=== PATIENT | male | born 1960 ===

== ENCOUNTER 2017-07-16 10:21 | Inpatient (IN) | payer MEDICARE, OTHER ==
[2017-07-16 10:29] VITALS: BMI 19.9
--- NOTE | 2017-07-16 11:40 | ED PDOC ---
Arrival/HPI - General Chief Complaint: Shortness Of Breath Time Seen by Provider: 07/16/17 11:21 Historian: Patient, Family - History of Present Illness Narrative History of Present Illness (Text): 07/16/17 11:35 A 56 year old male, whose past medical history includes hepatic ecephalpathy, hypokalemia, hyperammonemia, avulsion, cirrhosis of liver, diabetes mellitus, and seizure, presents to the emergency department for shortness of breath due to distended abdomen, which began about 3 weeks ago. The patient was advised by home nurse and primary care doctor to visit emergency department for abnormal abdomen size. The patient denies any fevers, nausea, abdominal pain, vomiting, diarrhea, dysuria, chest pain, or any other complaints at this time. Time/Duration: > week (x 3 weeks ) Symptom Onset: Gradual Symptom Course: Unchanged Activities at Onset: Light Context: Home Past Medical History - Provider Review Nursing Documentation Reviewed: Yes - Infectious Disease Hx of Infectious Diseases: None - Tetanus Immunization Tetanus Immunization: Unknown - Cardiac Hx Cardiac Disorders: Yes Hx Angina: No Hx Cardiac Arrhythmia: No Hx Circulatory Problems: No Hx Congestive Heart Failure: No Hx Heart Murmur: No Hx Heart Transplant: No Hx Hypertension: Yes (portal hypertension) Hx Internal Defibrillator: No Hx Mitral Valve Prolapse: No Hx Pacemaker: No Hx Peripheral Edema: No Hx Peripheral Vascular Disease: No - Pulmonary Hx Respiratory Disorders: No Hx Asthma: No Hx Bronchitis: No Hx Chronic Obstructive Pulmonary Disease (COPD): No Hx Emphysema: No Hx Pneumonia: No Hx Respiratory Aspiration: No Hx Respiratory Tract Infection: No Hx Sleep Apnea: No Hx Tuberculosis: No - Neurological Hx Neurological Disorder: No Hx Alzheimer's Disease: No HX Cerebrovascular Accident: No Hx Dementia: No Hx Dizziness: Yes Hx Meningitis: No Hx Migraine: No Hx Parkinson's Disease: No Hx Seizures: No Hx Transient Ischemic Attacks (TIA): No - HEENT Hx HEENT Disorder: Yes (wear glasses) Hx Blind: No Hx Cataracts: No Hx Deafness: No Hx Difficulty Chewing: No Hx Epistaxis: No Hx Glaucoma: No Hx Macular Degeneration: No - Renal Hx Renal Disorder: No Hx Dialysis: No Hx Kidney Stones: No Hx Neurogenic Bladder: No Hx Pyelonephritis: No Hx Renal Cancer: No Hx Renal Failure: No - Endocrine/Metabolic Hx Endocrine Disorders: Yes Hx Adrenal Cancer: No Hx Diabetes Insipidus: No Hx Diabetes Mellitus Type 2: Yes Hx Hyperthyroidism: No Hx Hypothyroidism: No Hx Systemic Lupus Erythematosus: No - Hematological/Oncological Hx Blood Disorders: No Hx AIDS: No Hx Anemia: No Hx Cancer: Yes (liver dx 01/2016) Hx Chemotherapy: Yes Hx Cirrhosis: Yes Hx Hemophilia: No Hx Hepatitis A: No Hx Hepatitis B: No Hx Hepatitis C: No Hx Metastasis: No Hx Shingles: No Hx Sickle Cell Disease: No Hx Unexplained Bleeding: No - Integumentary Hx Dermatological Disorder: No Hx Basal Cell Carcinoma: No Hx Melanoma: No Hx Psoriasis: Yes Hx Squamous Cell Carcinoma: No - Musculoskeletal/Rheumatological Hx Musculoskeletal Disorders: No Hx Arthritis: No Hx Back Pain: No Hx Degenerative Joint Disease: No Hx Falls: No Hx Fractures: No Hx Gout: No Hx Herniated Disk: No Hx Myasthenia Gravis: No Hx Osteoarthritis: No Hx Osteomyelitis: No Hx Osteoporosis: No Hx Rhabdomyolysis: No Hx Spinal Stenosis: No Hx Unsteady Gait: No - Gastrointestinal Hx Gastrointestinal Disorders: Yes (diarrhea from lactulose) Hx Colostomy: No Hx Crohn's Disease: No Hx Diverticulitis: No Hx Gall Bladder Disease: No Hx Gastroesophageal Reflux: No Hx Gastrointestinal Ulcer: No Hx Ileostomy: No Hx Liver Failure: No Hx Pancreatitis: No HX Swallowing Problems: No Other/Comment: Liver Cirrhosis - Genitourinary/Gynecological Hx Genitourinary Disorders: Yes Hx Hematuria: No Hx Incontinence: No Hx Prostate Problems: No Hx Sexually Transmitted Diseases: No Hx Urinary Tract Infection: No - Psychiatric Hx Psychophysiologic Disorder: No Hx Anxiety: No Hx Bipolar Disorder: No Hx Depression: No Hx Emotional Abuse: No Hx Hallucinations: No Hx Panic Disorder: No Hx Post Traumatic Stress Disorder: No Hx Psychosis: No Hx Physical Abuse: No Hx Schizophrenia: No Hx Sexual Abuse: No Hx Substance Use: No - Past Surgical History Past Surgical History: No Previous - Surgical History Hx Amputation: No Hx Appendectomy: No Hx Cardiac Catheterization: No Hx Cholecystectomy: No Hx Coronary Stent: No Hx Gastric Bypass Surgery: No Hx Hysterectomy: No Hx Joint Replacement: No Hx Kidney Transplant: No Hx Liver Transplant: No Hx Mastectomy: No Hx Musculoskeletal Surgery: No Hx Open Heart Surgery: No Hx Orthopedic Surgery: No Hx Splenectomy: No Hx Valve Replacement: No - Anesthesia Hx Anesthesia: No - Suicidal Assessment Feels Threatened In Home Enviroment: No Family/Social History - Physician Review Nursing Documentation Reviewed: Yes Family/Social History: No Known Family HX Smoking Status: Former Smoker Hx Alcohol Use: No Hx Substance Use: No Hx Substance Use Treatment: No Allergies/Home Meds Allergies/Adverse Reactions: Allergies No Known Allergies Allergy (Verified 08/10/16 10:38) Home Medications: Home Meds Medication Instructions Recorded Confirmed Insulin Glargine,Hum.rec.anlog 10 unit SC HS 10/12/14 07/16/17 [Lantus] rifAXIMin [Xifaxan] 1 tab PO BID 06/27/16 07/16/17 Insulin Lispro [Humalog (Insulin 0 units SC .EVERY MORNING 08/10/16 07/16/17 Lispro)] Omeprazole 20 mg PO DAILY 08/10/16 07/16/17 Potassium Chloride [K-Dur 20 mEq 20 meq PO DAILY 07/16/17 07/16/17 ER Tab] Spironolactone [Aldactone] 1 tab PO DAILY 07/16/17 07/16/17 Review of Systems - Physician Review All systems were reviewed & negative as marked: Yes - Review of Systems Constitutional: absent: Fevers Respiratory: SOB Cardiovascular: absent: Chest Pain Gastrointestinal: Other (abdominal distension ). absent: Abdominal Pain, Diarrhea, Nausea, Vomiting Genitourinary Male: absent: Dysuria Physical Exam - Physical Exam Narrative Physical Exam (Text): 07/16/17 11:37 Constitutional: No acute distress. Head: Normocephalic. Atraumatic. Eyes: PERRL. scleral icterus. ENT: Moist mucous membranes. Neck: Supple. Cardiovascular: Regular rate. Chest: No tenderness. Respiratory: Clear to auscultation bilaterally. GI: Soft. Nontender. Tense ascites of superficial abdominal veins. Back: No CVA tenderness. Musculoskeletal: No tenderness. Bilateral pitting edema. Skin: No rash. spider angioma. Neurologic: Alert, no focal deficit. Vital Signs Reviewed: Yes Vital Signs Temp Pulse Resp BP Pulse Ox 07/16/17 12:21 82 18 140/85 100 07/16/17 11:00 16 07/16/17 10:47 98.3 F 97 H 18 142/82 100 Temperature: Afebrile Blood Pressure: Normal Pulse: Tachycardic Respiratory Rate: Normal Appearance: Positive for: Well-Appearing, Non-Toxic, Comfortable Pain Distress: None Mental Status: Positive for: Alert and Oriented X 3 Finger Stick Blood Glucose: 241 Medical Decision Making ED Course and Treatment: 07/16/17 11:42 Impression: A 56 year old male with a distended abdomen. Differential Diagnosis included but are not limited to: Plan: -- EKG -- Chest X-ray -- Labs -- Urinalysis -- Reassess and disposition Prior Visits: Notes and results from previous visits were reviewed. The patient was last seen in the emergency department on 08/11/16 for hepatic encephalopathy. The patient was hospitalized. Progress Notes: 07/16/17 13:18 Chest X-ray Cutter Brake Lining : Jeromy Anne MD Report Date : 07/16/2017 13:15:07 HISTORY:dyspnea COMPARISON:08/10/2016 FINDINGS: LUNGS:No active pulmonary disease. Minimal linear atelectasis at both lung bases PLEURA:No significant pleural effusion identified, no pneumothorax apparent. CARDIOVASCULAR:Normal. OSSEOUS STRUCTURES:No significant abnormalities. VISUALIZED UPPER ABDOMEN:Normal. OTHER FINDINGS:None. IMPRESSION:No active disease. EKG NSR 98 bpm, no ST elevations or depressions. Potassium supplementation initiated. Dr. Tapia accepts patient to hospitalist service. - Lab Interpretations Lab Results: 07/16/17 11:30 07/16/17 11:30 Lab Results 07/16/17 13:00: Urine Color Yellow, Urine Appearance Clear, Urine pH 7.5, Ur Specific [place] 1.010, Urine Protein Negative, Urine Glucose (UA) Negative, Urine Ketones Negative, Urine Blood Negative, Urine Nitrate Negative, Urine Bilirubin Negative, Urine Urobilinogen 1.0 H, Ur Leukocyte Esterase Negative 07/16/17 11:30: Sodium 137, Potassium 2.6 L*, Chloride 105, Carbon Dioxide 21, Anion Gap 14, BUN 5 L, Creatinine 0.6, Est GFR ( Amer) > 60, Est GFR (Non -Af Amer) > 60, Random Glucose 186 H, Calcium 8.4, Total Bilirubin 5.3 H, AST 136 H, ALT 62 H, Alkaline Phosphatase 194 H, Total Protein 7.7, Albumin 2.9 L, Globulin 4.8, Albumin/Globulin Ratio 0.6 L 07/16/17 11:30: PT 16.1 H, INR 1.49 H, APTT 34.1 H 07/16/17 11:30: WBC 4.6 D, RBC 3.11 L, Hgb 10.4 L, Hct 31.1 L, MCV 100.0, MCH 33.4, MCHC 33.4, RDW 13.5, Plt Count 120, MPV 10.2, Gran % 69.8 H, Lymph % (Auto ) 9.7 L, [place] % (Auto) 17.7 H, Eos % (Auto) 1.7, Baso % (Auto) 1.1, Gran # 3.22 , Lymph # 0.5 L, [place] # 0.8 H, Eos # 0.1, Baso # 0.05 07/16/17 11:21: Blood Type O POSITIVE, Antibody Screen Negative, BBK History Checked No verified bt - RAD Interpretation Radiology Orders: 07/16/17 11:22 CHEST PORTABLE [RAD] Stat - Medication Orders Current Medication Orders: Potassium Chloride (Potassium Chloride 20 Meq/100 Ml) 20 meq in 100 mls @ 50 mls/hr IVPB STAT STA Stop: 07/16/17 14:16 Last Admin: 07/16/17 12:56 Dose: 50 mls/hr - Scribe Statement The provider has reviewed the documentation as recorded by the Arina Lynch Provider Scribe Attestation: All medical record entries made by the Arina were at my direction and personally dictated by me. I have reviewed the chart and agree that the record accurately reflects my personal performance of the history, physical exam, medical decision making, and the department course for this patient. I have also personally directed, reviewed, and agree with the discharge instructions and disposition. Disposition/Present on Arrival - Present on Arrival Any Indicators Present on Arrival: Yes History of DVT/PE: No History of Uncontrolled Diabetes: Yes Urinary Catheter: No History of Decub. Ulcer: No History Surgical Site Infection Following: None - Disposition Have Diagnosis and Disposition been Completed?: Yes Diagnosis: Hypokalemia, Ascites Disposition: HOSPITALIZED Disposition Time: 13:25 Patient Plan: Admission Condition: FAIR
[2017-07-16 11:45] LABS: BASO # 0.05 K/mm3 (0.0-2.0); BASO % 1.1 % (0.0-3.0); EOS # 0.1 (0.0-0.7); EOS % 1.7 % (1.5-5.0); GRAN # 3.22 (1.4-6.5); GRAN % 69.8 % (50.0-68.0); HEMATOCRIT 31.1 % (42.0-52.0); LYMPH # 0.5 (1.2-3.4); LYMPH % 9.7 % (22.0-35.0); MEAN CORPUSCULAR HEMOGLOBIN 33.4 pg (25.0-35.0); MEAN CORPUSCULAR HGB CONC 33.4 g/dl (31.0-37.0); MEAN PLATELET VOLUME 10.2 fl (7.0-11.0); MONO # 0.8 (0.1-0.6); MONO % 17.7 % (1.0-6.0); RED CELL DISTRIBUTION WIDTH 13.5 % (11.5-14.5); WHITE BLOOD COUNT 4.6 10^3/ul (4.5-11.0)
[2017-07-16 11:50] LABS: ALB/GLOB RATIO 0.6 (1.1-1.8); ALKALINE PHOSPHATASE 194 U/L (38-126); ALT/SGPT 62 U/L (7-56); AST/SGOT 136 U/L (17-59); BILIRUBIN,TOTAL 5.3 mg/dL (0.2-1.3); BLOOD UREA NITROGEN 5 mg/dL (7-21); CALCIUM 8.4 mg/dL (8.4-10.5); CARBON DIOXIDE 21 mmol/L (21-33); CHLORIDE 105 mmol/L (98-107); GFR AFRICAN-AMERICAN > 60; GLUCOSE,RANDOM 186 mg/dL (70-110); SODIUM 137 mmol/L (132-148); TOTAL PROTEIN 7.7 g/dL (5.8-8.3)
[2017-07-16 11:51] LABS: INR 1.49 (0.93-1.08); PARTIAL THROMBOPLASTIN TIME 34.1 Seconds (23.7-30.8)
[2017-07-16 11:55] LABS: POTASSIUM 2.6 mmol/L (3.6-5.0)
--- NOTE | 2017-07-16 13:16 | RAD ---
HISTORY: dyspnea COMPARISON: 08/10/2016 FINDINGS: LUNGS: No active pulmonary disease. Minimal linear atelectasis at both lung bases PLEURA: No significant pleural effusion identified, no pneumothorax apparent. CARDIOVASCULAR: Normal. OSSEOUS STRUCTURES: No significant abnormalities. VISUALIZED UPPER ABDOMEN: Normal. OTHER FINDINGS: None. IMPRESSION: No active disease.
[2017-07-16 13:17] LABS: PH,URINE 7.5 (4.7-8.0); URINE BILIRUBIN NEGATIVE (NEGATIVE); URINE BLOOD NEGATIVE (NEGATIVE); URINE GLUCOSE (UA) NEGATIVE (NEGATIVE); URINE KETONE NEGATIVE (NEGATIVE); URINE LEUKOCYTE ESTERASE NEGATIVE Leu/uL (NEGATIVE); URINE PROTEIN NEGATIVE mg/dL (<30 mg/dL)
[2017-07-16 13:22] LABS: URINE APPEARANCE CLEAR (CLEAR); URINE COLOR YELLOW (YELLOW)
--- NOTE | 2017-07-16 14:13 | CARD ---
APPROVED REPORT EKG Measurement Heart [id number] <Conclusion> Normal sinus rhythm Possible Left atrial enlargement Nonspecific ST and T wave abnormality Prolonged QT Abnormal ECG
[2017-07-16] MEDS ORDERED: Potassium Chloride 20 mEq/15 ml LIQ UD PO STA (14:24)
[2017-07-16] MEDS ORDERED: Pantoprazole 40mg/100ml IVPB 40 MG/100 ML BAG IVPB SCH (14:30)
--- NOTE | 2017-07-16 15:29 | CP.PCM.HP ---
<Raúl Davis - Last Filed: 07/16/17 15:40> History of Present Illness - History of Present Illness History of Present Illness: This is a 56 yr. old male with a past medical history of hepatic encephalpathy, hypokalemia hyperammonemia, avulsion, cirrhosis of liver, diabetes mellitus, seizure who is being admitted after coming to the emergency department complaining of shortness of breath due to swelling in his abdomen that has progressively gotten worse over the past 3 weeks. The patient denies any abdominal pain, nausea, vomiting, fevers, chills, blood in the stool, bleeding, headache, dizziness, or any other complaints. The patient was recently hospitalized and discharged from [facility] with the admitting diagnosis of hypoglycemia. The patient also had a seizure 2/2 to severe hypoglycemia during his hospital stay at [facility]. The patient also denies being diagnosed with Hep B/C in his past. While in the Emergency Department the patient was given 20mEq of KCL. He also had an EKG done which showed NSR, no acute ST-T changes. Also had an CXR which showed no active disease. PMD:Dr. Rivera GI: PMHx: Per HPI Medications: Aldactone, K-Dur, Enulose, Lispro, Glargine, Rifaxim, Lantis (10 Units), and Humalog Hosp HX: Per HPI Allergies: NKDA Fam Hx:Denies Present on Admission - Present on Admission Any Indicators Present on Admission: No Review of Systems - Constitutional Constitutional: As Per HPI - EENT Ears: As Per HPI Nose/Mouth/Throat: As Per HPI - Cardiovascular Cardiovascular: As Per HPI - Respiratory Respiratory: As Per HPI - Gastrointestinal Gastrointestinal: As Per HPI - Genitourinary Genitourinary: As Per HPI - Musculoskeletal Musculoskeletal: As Per HPI - Integumentary Integumentary: As Per HPI - Psychiatric Psychiatric: As Per HPI - Endocrine Endocrine: As Per HPI - Hematologic/Lymphatic Hematologic: As Per HPI Past Patient History - Infectious Disease Hx of Infectious Diseases: None - Tetanus Immunizations Tetanus Immunization: Unknown - Past Social History Smoking Status: Former Smoker - CARDIAC Hx Cardiac Disorders: Yes Hx Angina: No Hx Cardia Arrhythmia: No Hx Circulatory Problems: No Hx Congestive Heart Failure: No Hx Heart Murmur: No Hx Heart Transplant: No Hx Hypertension: Yes (portal hypertension) Hx Internal Defibrillator: No Hx Mitral Valve Prolapse: No Hx Pacemaker: No Hx Peripheral Edema: No Hx Peripheral Vascular Disease: No - PULMONARY Hx Respiratory Disorders: No Hx Asthma: No Hx Bronchitis: No Hx Chronic Obstructive Pulmonary Disease (COPD): No Hx Emphysema: No Hx Pneumonia: No Hx Respiratory Aspiration: No Hx Respiratory Tract Infection: No Hx Sleep Apnea: No Hx Tuberculosis: No - NEUROLOGICAL Hx Neurological Disorder: No Hx Alzheimer's Disease: No HX Cerebrovascular Accident: No Hx Dementia: No Hx Dizziness: Yes Hx Meningitis: No Hx Migraine: No Hx Parkinson's Disease: No Hx Seizures: No Hx Transient Ischemic Attacks (TIA): No - HEENT Hx HEENT Problems: Yes (wear glasses) Hx Blind: No Hx Cataracts: No Hx Deafness: No Hx Difficulty Chewing: No Hx Epistaxis: No Hx Glaucoma: No Hx Macular Degeneration: No - RENAL Hx Chronic Kidney Disease: No Hx Dialysis: No Hx Kidney Stones: No Hx Neurogenic Bladder: No Hx Pyelonephritis: No Hx Renal (Kidney) Cancer: No Hx Renal Failure: No - ENDOCRINE/METABOLIC Hx Endocrine Disorders: Yes Hx Adrenal Cancer: No Hx Diabetes Insipidus: No Hx Diabetes Mellitus Type 2: Yes Hx Hyperthyroidism: No Hx Hypothyroidism: No Hx Systemic Lupus Erythematosus: No - HEMATOLOGICAL/ONCOLOGICAL Hx Blood Disorders: No Hx AIDS: No Hx Anemia: No Hx Cancer: Yes (liver dx 01/2016) Hx Chemotherapy: Yes Hx Cirrhosis: Yes Hx Hemophilia: No Hx Hepatitis A: No Hx Hepatitis B: No Hx Hepatitis C: No Hx Metastesis: No Hx Shingles: No Hx Sickle Cell Disease: No Hx Unexplained Bleeding: No - INTEGUMENTARY Hx Dermatological Problems: No Hx Basil Cell: No Hx Melanoma: No Hx Psoriasis: Yes Hx Squamous Cell: No - MUSCULOSKELETAL/RHEUMATOLOGICAL Hx Musculoskeletal Disorders: No Hx Arthritis: No Hx Back Pain: No Hx Degenerative Joint Disease: No Hx Falls: No Hx Fractures: No Hx Gout: No Hx Herniated Disk: No Hx Myasthenia Gravis: No Hx Osteoarthritis: No Hx Osteomyelitis: No Hx Osteoporosis: No Hx Rhabdomyolysis: No Hx Spinal Stenosis: No Hx Unsteady Gait: No - GASTROINTESTINAL Hx Gastrointestinal Disorders: Yes (diarrhea from lactulose) Hx Colostomy: No Hx Crohn's Disease: No Hx Diverticulitis: No Hx Gall Bladder Disease: No Hx Gastroesophageal Reflux: No Hx Ileostomy: No Hx Liver Failure: No Hx Pancreatitis: No HX Swallowing Problems: No Other/Comment: Liver Cirrhosis - GENITOURINARY/GYNECOLOGICAL Hx Genitourinary Disorders: Yes Hx Hematuria: No Hx Incontinence: No Hx Prostate Problems: No Hx Sexually Transmitted Disorders: No Hx Urinary Tract Infection: No - PSYCHIATRIC Hx Psychophysiologic Disorder: No Hx Anxiety: No Hx Bipolar Disorder: No Hx Depression: No Hx Emotional Abuse: No Hx Hallucinations: No Hx Panic Symptoms: No Hx Post Traumatic Stress Disorder: No Hx Psychosis: No Hx Physical Abuse: No Hx Schizophrenia: No Hx Sexual Abuse: No Hx Substance Use: No - SURGICAL HISTORY Hx Amputation: No Hx Appendectomy: No Hx Cardiac Catheterization: No Hx Cholecystectomy: No Hx Coronary Stent: No Hx Gastric Bypass Surgery: No Hx Hysterectomy: No Hx Joint Replacement: No Hx Kidney Transplant: No Hx Liver Transplant: No Hx Mastectomy: No Hx Musculoskeletal Surgery: No Hx Open Heart Surgery: No Hx Orthopedic Surgery: No Hx Splenectomy: No Hx Valve Replacement: No - ANESTHESIA Hx Anesthesia: No Meds Allergies/Adverse Reactions: Allergies Allergy/AdvReac Type Severity Reaction Status Date / Time No Known Allergies Allergy Verified 08/10/16 10:38 Physical Exam - Constitutional Appears: Older Than Stated Age, Cachectic, Chronically Ill - Head Exam Head Exam: ATRAUMATIC, NORMAL INSPECTION, NORMOCEPHALIC - Eye Exam Eye Exam: EOMI, PERRL, Scleral icterus Pupil Exam: NORMAL ACCOMODATION, PERRL. absent: Irregular - ENT Exam ENT Exam: Mucous Membranes Moist Additional comments: Thrush appreciated - Neck Exam Neck exam: Positive for: Normal Inspection - Respiratory Exam Respiratory Exam: Clear to Auscultation Bilateral, NORMAL BREATHING PATTERN. absent: Chest Wall Tenderness, Wheezes - Cardiovascular Exam Cardiovascular Exam: REGULAR RHYTHM, RRR, +S1. absent: Rubs - GI/Abdominal Exam Additional comments: Ascites noted and Caput madusae. - Back Exam Back exam: NORMAL INSPECTION. absent: paraspinal tenderness - Neurological Exam Neurological exam: Alert, CN II-XII Intact, Oriented x3 - Skin Skin Exam: Pallor Results - Vital Signs Recent Vital Signs: Last Vital Signs Temp 98.3 F 07/16/17 10:47 Pulse 87 07/16/17 14:50 Resp 18 07/16/17 14:50 BP 139/79 07/16/17 14:50 Pulse Ox 100 07/16/17 14:50 - Labs Result Diagrams: 07/16/17 11:30 07/16/17 11:30 Assessment & Plan - Assessment and Plan (Free Text) Assessment: This is a 56 year old male with past medical history of hyperammonia, liver cirrhosis, hepatic encephalopathy, avulsion, seizures, and diabetes who was admitted with ascites and hypokalemia. Plan: 1.Ascites -Dr. Conway was consulted for therapeutic and diagnostic tap. -Started on Calorie restricted, Na restricted, fluid restriction diet. 1500ml Diet/Low Na diet/1800kcal -GI consulted. f/u with recs. -continue home medications. Will hold lactulose if patient has another bowel movement due to his hypokalemia. 2.Hypokalemia -2.6 at admission. Patient given 20mEq in the emergency department. -Patient given another 40 mEq is to receive another 40 mEq in 4 hours. f/u with serial cmp's. 3. Oral Thrust -Likely 2/2 to his diabetes. -Nystatin swish 4.Diabetes mellitus -held home medications -Start low insulin sliding scale. Follow up with Q6 blood glucose checks. Monitor closely. 4.GI ppx -Start protonix 5.DVT ppx -Lovenox. Will hold for pending paracentesis <Ricardo SINGH,[facility] - Last Filed: 07/16/17 16:56> Results - Vital Signs Recent Vital Signs: Last Vital Signs Temp 98.3 F 07/16/17 15:25 Pulse 82 07/16/17 15:25 Resp 18 07/16/17 15:25 BP 140/85 07/16/17 15:25 Pulse Ox 100 07/16/17 14:50 - Labs Result Diagrams: 07/16/17 11:30 07/16/17 11:30 Labs: Laboratory Results - last 24 hr 07/16/17 16:19 POC Glucose (mg/dL) 190 H Attending/Attestation - Attestation I have personally seen and examined this patient.: Yes I have fully participated in the care of the patient.: Yes I have reviewed all pertinent clinical information: Yes Notes (Text): 07/16/17 16:48 Patient was seen and examined with medical technologist clinical. Agreed with resident assessment and plan. 56 year old male with past medical history of chronic liver disease,Ascites, , DM currently not on any medication due to H/O hypoglycemia , hepatic encephalopathy, is admitted with admitted with ascites and hypokalemia.EKG is negative for hypokalemic changes, patient has been given repalcement in ER.We will give oral K and follow up electrolyte. Patient Ascites is likely chronic,was started on spironolactone.Patient does not has any abdominal tenderness, will get IR consult for Paracentesis. Recent MRI was noted, no evidence of liver malignancy on MRI. Patient is very cachectic. Prognosis is guarded. Management plan was discussed in detail with patient Education was provided. 07/16/17 16:55
[2017-07-16] MEDS ORDERED: Pneumococcal 23-Valent Vaccine IM ONE (16:09)
[2017-07-16] MEDS: Insulin Reg-LOW-Coverage SC SCH ×2 (16:44→21:40)
[2017-07-16] MEDS: Pantoprazole 40 mg EC Tab PO SCH (16:46)
[2017-07-16] MEDS: Nystatin 100,000 Units/ml Oral Susp 5 ml UD PO SCH ×2 (17:18→21:41)
[2017-07-16 18:16] LABS: ALB/GLOB RATIO 0.5 (1.1-1.8); ALKALINE PHOSPHATASE 161 U/L (38-126); ALT/SGPT 55 U/L (7-56); AST/SGOT 111 U/L (17-59); BILIRUBIN,TOTAL 5.1 mg/dL (0.2-1.3); BLOOD UREA NITROGEN 5 mg/dL (7-21); CALCIUM 7.7 mg/dL (8.4-10.5); CARBON DIOXIDE 21 mmol/L (21-33); CHLORIDE 106 mmol/L (98-107); GFR AFRICAN-AMERICAN > 60; GLUCOSE,RANDOM 199 mg/dL (70-110); SODIUM 134 mmol/L (132-148); TOTAL PROTEIN 6.8 g/dL (5.8-8.3)
[2017-07-16 18:18] LABS: POTASSIUM 2.5 mmol/L (3.6-5.0)
[2017-07-16] MEDS ORDERED: Potassium Chloride 20 mEq ER Tab PO STA (18:50)
[2017-07-16] MEDS: Potassium Chloride 20 mEq ER Tab PO SCH (22:04)
[2017-07-17] MEDS ORDERED: Potassium Chloride 20 mEq ER Tab PO STA (02:30)
[2017-07-17 02:50] LABS: BASO # 0.03 K/mm3 (0.0-2.0); BASO % 0.6 % (0.0-3.0); EOS # 0.2 (0.0-0.7); EOS % 3.6 % (1.5-5.0); GRAN # 3.18 (1.4-6.5); GRAN % 67.2 % (50.0-68.0); HEMATOCRIT 28.3 % (42.0-52.0); LYMPH # 0.6 (1.2-3.4); LYMPH % 12.4 % (22.0-35.0); MEAN CELL VOLUME 100.4 fl (80.0-105.0); MEAN CORPUSCULAR HEMOGLOBIN 33.7 pg (25.0-35.0); MEAN CORPUSCULAR HGB CONC 33.6 g/dl (31.0-37.0); MEAN PLATELET VOLUME 9.5 fl (7.0-11.0); MONO # 0.8 (0.1-0.6); MONO % 16.2 % (1.0-6.0); RED CELL DISTRIBUTION WIDTH 13.5 % (11.5-14.5); WHITE BLOOD COUNT 4.7 10^3/ul (4.5-11.0)
[2017-07-17 03:06] LABS: ALB/GLOB RATIO 0.6 (1.1-1.8); ALKALINE PHOSPHATASE 157 U/L (38-126); ALT/SGPT 55 U/L (7-56); AST/SGOT 114 U/L (17-59); BILIRUBIN,TOTAL 5.1 mg/dL (0.2-1.3); BLOOD UREA NITROGEN 5 mg/dL (7-21); CALCIUM 7.8 mg/dL (8.4-10.5); CARBON DIOXIDE 21 mmol/L (21-33); GFR AFRICAN-AMERICAN > 60; GLUCOSE,RANDOM 161 mg/dL (70-110); MAGNESIUM 1.3 mg/dL (1.7-2.2); PHOSPHOROUS 1.9 mg/dL (2.5-4.5); POTASSIUM 3.2 mmol/L (3.6-5.0); SODIUM 135 mmol/L (132-148); TOTAL PROTEIN 6.7 g/dL (5.8-8.3)
[2017-07-17 03:15] LABS: CHLORIDE 108 mmol/L (98-107)
[2017-07-17] MEDS: Pantoprazole 40 mg EC Tab PO SCH ×2 (05:39→17:29)
[2017-07-17] MEDS ORDERED: Sodium Phosphate 15 MMOLE in Sodium Chloride 0.9% 250 ML IVPB ONE (06:38)
[2017-07-17] MEDS: Magnesium Sulfate 2 GM in Sodium Chloride 0.9% 100 ML IVPB ONE ×2 (06:59→09:11)
[2017-07-17] MEDS ORDERED: Potassium Chloride 20 mEq ER Tab PO ONE (07:55)
[2017-07-17] MEDS: Insulin Reg-LOW-Coverage SC SCH ×4 (08:30→21:30)
[2017-07-17] MEDS ORDERED: Potassium Chloride 20 mEq ER Tab PO SCH (10:00)
[2017-07-17] MEDS: Magnesium Oxide 400 mg Tab UD PO SCH ×2 (10:58→17:29)
[2017-07-17] MEDS: Potassium Chloride 20 mEq ER Tab PO SCH (10:58)
[2017-07-17] MEDS: Nystatin 100,000 Units/ml Oral Susp 5 ml UD PO SCH ×4 (10:59→21:30)
--- NOTE | 2017-07-17 12:48 | CP.PCM.CON ---
<Ashlie Solis - Last Filed: 07/17/17 12:47> History of Present Illness - History of Present Illness History of Present Illness: Seen and examined at the bedside earlier today, chart was reviewed. Request for GI consult is for liver disease/ascites. HPI:This is a 56-year-old male with a past medical history of cirrhosis of the liver,hepatic encephalopathy, diabetes mellitus and seizures came to the emergency room with complaints of shortness of breath and increasing abdominal girth, he states that it has gotten worse over the past 3 weeks. He is on Aldactone. He was sent by his primary and visiting nurse to go to the ER for further evaluation. He follows up with his [facility] [employer] Dr. Gale, and [place], he last saw his doctor a month ago. Patient states that he had history of liver cancer, had chemotherapy and surgery. In review of his record he had an abdominal MRI done 07/16/2017which reports cirrhosis and atrophy of the liver. The liver has slightly decreased in size compared to previous exam. Evidence of portal hypertension with recanalization of the umbilical vein. There is also increase in ascites which is now severe. No focal or infiltrating lesions seen in the liver to suggest hepatic carcinoma. There is enlargement of the splenic vein He denies change in bowel habits, no hematemesis or melena. Reports he had endoscopy and colonoscopy about [address] Gale with no acute findings. He denies current EtOH, he stopped drinking alcohol 2008. Past medical history: Liver cirrhosis, ?Liver cancer, hepatic encephalopathy, diabetes mellitus, seizure disorder Surgical history:? Surgical intervention for liver?TIPS Family history: Mother colon with diabetes mellitus Allergies: No known drug allergies Medications: Reviewed as per MAR Social history: Quit smoking in 2008, history of EtOH, stopped in 2008, denies substance abuse ROS: Systems reviewed with positive finding see HPI Past Patient History - Infectious Disease Hx of Infectious Diseases: None - Tetanus Immunizations Tetanus Immunization: Unknown - Past Social History Smoking Status: Former Smoker - CARDIAC Hx Cardiac Disorders: Yes Hx Angina: No Hx Cardia Arrhythmia: No Hx Circulatory Problems: No Hx Congestive Heart Failure: No Hx Heart Murmur: No Hx Heart Transplant: No Hx Hypertension: Yes (portal hypertension) Hx Internal Defibrillator: No Hx Mitral Valve Prolapse: No Hx Pacemaker: No Hx Peripheral Edema: No Hx Peripheral Vascular Disease: No - PULMONARY Hx Respiratory Disorders: No Hx Asthma: No Hx Bronchitis: No Hx Chronic Obstructive Pulmonary Disease (COPD): No Hx Emphysema: No Hx Pneumonia: No Hx Respiratory Aspiration: No Hx Respiratory Tract Infection: No Hx Sleep Apnea: No Hx Tuberculosis: No - NEUROLOGICAL Hx Neurological Disorder: No Hx Alzheimer's Disease: No HX Cerebrovascular Accident: No Hx Dementia: No Hx Dizziness: Yes Hx Meningitis: No Hx Migraine: No Hx Parkinson's Disease: No Hx Seizures: No Hx Transient Ischemic Attacks (TIA): No - HEENT Hx HEENT Problems: Yes (wear glasses) Hx Blind: No Hx Cataracts: No Hx Deafness: No Hx Difficulty Chewing: No Hx Epistaxis: No Hx Glaucoma: No Hx Macular Degeneration: No - RENAL Hx Chronic Kidney Disease: No Hx Dialysis: No Hx Kidney Stones: No Hx Neurogenic Bladder: No Hx Pyelonephritis: No Hx Renal (Kidney) Cancer: No Hx Renal Failure: No - ENDOCRINE/METABOLIC Hx Endocrine Disorders: Yes Hx Adrenal Cancer: No Hx Diabetes Insipidus: No Hx Diabetes Mellitus Type 2: Yes Hx Hyperthyroidism: No Hx Hypothyroidism: No Hx Systemic Lupus Erythematosus: No - HEMATOLOGICAL/ONCOLOGICAL Hx Blood Disorders: No Hx AIDS: No Hx Anemia: No Hx Cancer: Yes (liver dx 01/2016) Hx Chemotherapy: Yes Hx Cirrhosis: Yes Hx Hemophilia: No Hx Hepatitis A: No Hx Hepatitis B: No Hx Hepatitis C: No Hx Metastesis: No Hx Shingles: No Hx Sickle Cell Disease: No Hx Unexplained Bleeding: No - INTEGUMENTARY Hx Dermatological Problems: No Hx Basil Cell: No Hx Melanoma: No Hx Psoriasis: Yes Hx Squamous Cell: No - MUSCULOSKELETAL/RHEUMATOLOGICAL Hx Musculoskeletal Disorders: No Hx Arthritis: No Hx Back Pain: No Hx Degenerative Joint Disease: No Hx Falls: No Hx Fractures: No Hx Gout: No Hx Herniated Disk: No Hx Myasthenia Gravis: No Hx Osteoarthritis: No Hx Osteomyelitis: No Hx Osteoporosis: No Hx Rhabdomyolysis: No Hx Spinal Stenosis: No Hx Unsteady Gait: No - GASTROINTESTINAL Hx Gastrointestinal Disorders: Yes (diarrhea from lactulose) Hx Colostomy: No Hx Crohn's Disease: No Hx Diverticulitis: No Hx Gall Bladder Disease: No Hx Gastroesophageal Reflux: No Hx Ileostomy: No Hx Liver Failure: No Hx Pancreatitis: No HX Swallowing Problems: No Other/Comment: Liver Cirrhosis - GENITOURINARY/GYNECOLOGICAL Hx Genitourinary Disorders: Yes Hx Hematuria: No Hx Incontinence: No Hx Prostate Problems: No Hx Sexually Transmitted Disorders: No Hx Urinary Tract Infection: No - PSYCHIATRIC Hx Psychophysiologic Disorder: No Hx Anxiety: No Hx Bipolar Disorder: No Hx Depression: No Hx Emotional Abuse: No Hx Hallucinations: No Hx Panic Symptoms: No Hx Post Traumatic Stress Disorder: No Hx Psychosis: No Hx Physical Abuse: No Hx Schizophrenia: No Hx Sexual Abuse: No Hx Substance Use: No - SURGICAL HISTORY Hx Amputation: No Hx Appendectomy: No Hx Cardiac Catheterization: No Hx Cholecystectomy: No Hx Coronary Stent: No Hx Gastric Bypass Surgery: No Hx Hysterectomy: No Hx Joint Replacement: No Hx Kidney Transplant: No Hx Liver Transplant: No Hx Mastectomy: No Hx Musculoskeletal Surgery: No Hx Open Heart Surgery: No Hx Orthopedic Surgery: No Hx Splenectomy: No Hx Valve Replacement: No - ANESTHESIA Hx Anesthesia: No Meds Allergies/Adverse Reactions: Allergies Allergy/AdvReac Type Severity Reaction Status Date / Time No Known Allergies Allergy Verified 08/10/16 10:38 - Medications Medications: Current Medications Sodium Phosphate 15 mmole/ (Sodium Chloride) 255 mls @ 42.5 mls/hr IVPB ONCE ONE Stop: 07/17/17 12:37 Last Admin: 07/17/17 09:12 Dose: 42.5 mls/hr Insulin Human Regular (Humulin R Low) 0 units SC ACHS [facility] PRN Reason: Protocol Last Admin: 07/17/17 08:30 Dose: Not Given Lactulose (Enulose) 20 gm PO BID [facility] Last Admin: 07/17/17 10:59 Dose: 20 gm Magnesium Oxide (Mag-Ox) 400 mg PO BID [facility] Last Admin: 07/17/17 10:58 Dose: 400 mg Nystatin (Nystatin Oral Susp) 5 ml PO QID [facility] Last Admin: 07/17/17 10:59 Dose: 5 ml Pantoprazole Sodium (Protonix Ec Tab) 40 mg PO 0600,1600 [facility] Last Admin: 07/17/17 05:39 Dose: 40 mg Potassium Chloride (K-Dur 20 Meq Er Tab) 40 meq PO BRK [facility] Last Admin: 07/17/17 10:58 Dose: 40 meq Rifaximin (Xifaxan) 550 mg PO BID [facility] PRN Reason: Protocol Last Admin: 07/17/17 10:58 Dose: 550 mg Spironolactone (Aldactone) 25 mg PO DAILY [facility] Last Admin: 07/17/17 10:58 Dose: 25 mg Physical Exam - Constitutional Appears: No Acute Distress, Cachectic - Head Exam Head Exam: NORMOCEPHALIC - Eye Exam Eye Exam: Scleral icterus - ENT Exam ENT Exam: Mucous Membranes Moist - Neck Exam Neck exam: Positive for: Normal Inspection - Respiratory Exam Respiratory Exam: Clear to Auscultation Bilateral, NORMAL BREATHING PATTERN. absent: Respiratory Distress - Cardiovascular Exam Cardiovascular Exam: +S1, +S2 - GI/Abdominal Exam GI & Abdominal Exam: Distended (ascites), Firm, Normal Bowel Sounds. absent: Guarding, Rebound, Tenderness - Extremities Exam Extremities exam: Positive for: pedal edema (mild), pedal pulses present. Negative for: calf tenderness - Neurological Exam Neurological exam: Alert, Oriented x3 - Skin Skin Exam: Dry, Warm Results - Vital Signs Recent Vital Signs: Last Vital Signs Temp 97.6 F 07/17/17 06:00 Pulse 74 07/17/17 06:00 Resp 18 07/17/17 06:00 BP 107/66 07/17/17 06:00 Pulse Ox 100 07/17/17 06:00 - Labs Result Diagrams: 07/17/17 02:40 07/17/17 02:40 Labs: Laboratory Results - last 24 hr 07/16/17 07/16/17 07/16/17 16:19 18:03 18:03 WBC RBC Hgb Hct MCV MCH MCHC RDW Plt Count MPV Gran % Lymph % (Auto) [place] % (Auto) Eos % (Auto) Baso % (Auto) Gran # Lymph # [place] # Eos # Baso # Sodium 134 Potassium 2.5 L* Chloride 106 Carbon Dioxide 21 Anion Gap 10 BUN 5 L Creatinine 0.6 Est GFR ( Amer) > 60 Est GFR (Non-Af Amer) > 60 POC Glucose (mg/dL) 190 H Random Glucose 199 H Calcium 7.7 L Phosphorus Magnesium Total Bilirubin 5.1 H AST 111 H ALT 55 Alkaline Phosphatase 161 H Total Protein 6.8 Albumin 2.4 L Globulin 4.4 Albumin/Globulin Ratio 0.5 L Blood Type Confirm O POSITIVE 07/16/17 07/16/17 07/17/17 21:14 23:40 02:40 WBC RBC Hgb Hct MCV MCH MCHC RDW Plt Count MPV Gran % Lymph % (Auto) [place] % (Auto) Eos % (Auto) Baso % (Auto) Gran # Lymph # [place] # Eos # Baso # Sodium 135 Potassium 2.9 L* 3.2 L Chloride 108 H Carbon Dioxide 21 Anion Gap 9 L BUN 5 L Creatinine 0.7 Est GFR ( Amer) > 60 Est GFR (Non-Af Amer) > 60 POC Glucose (mg/dL) 153 H Random Glucose 161 H Calcium 7.8 L Phosphorus 1.9 L Magnesium 1.3 L Total Bilirubin 5.1 H AST 114 H ALT 55 Alkaline Phosphatase 157 H Total Protein 6.7 Albumin 2.4 L Globulin 4.3 Albumin/Globulin Ratio 0.6 L Blood Type Confirm 07/17/17 07/17/17 07/17/17 02:40 08:41 11:19 WBC 4.7 RBC 2.82 L Hgb 9.5 L Hct 28.3 L MCV 100.4 MCH 33.7 MCHC 33.6 RDW 13.5 Plt Count 88 L MPV 9.5 Gran % 67.2 Lymph % (Auto) 12.4 L [place] % (Auto) 16.2 H Eos % (Auto) 3.6 Baso % (Auto) 0.6 Gran # 3.18 Lymph # 0.6 L Jasper # 0.8 H Eos # 0.2 Baso # 0.03 Sodium Potassium Chloride Carbon Dioxide Anion Gap BUN Creatinine Est GFR ( Amer) Est GFR (Non-Af Amer) POC Glucose (mg/dL) 147 H 219 H Random Glucose Calcium Phosphorus Magnesium Total Bilirubin AST ALT Alkaline Phosphatase Total Protein Albumin Globulin Albumin/Globulin Ratio Blood Type Confirm Assessment & Plan - Assessment and Plan (Free Text) Assessment: Assessment: Liver cirrhosis Abdominal ascites Enlarged splenic vein Enlargement and recannulization of umbilical vein History of seizures Diabetes mellitus Plan: Evaluate for paracentesis Continue Aldactone Monitor electrolytes Monitor LFTs Continue Xifaxan, lactulose Continue PPI Abdominal Doppler Check AFP Thank you for this consult and for allowing us to participate in your patient's care, we'll make further recommendations based upon patient's clinical course. Seen and discussed with Dr. Cortes. <Tanner Cortes V - Last Filed: 07/17/17 20:00> Meds - Medications Medications: Current Medications Insulin Human Regular (Humulin R Low) 0 units SC ACHS [facility] PRN Reason: Protocol Last Admin: 07/17/17 17:34 Dose: 1 units Lactulose (Enulose) 20 gm PO BID [facility] Last Admin: 07/17/17 17:28 Dose: 20 gm Magnesium Oxide (Mag-Ox) 400 mg PO BID [facility] Last Admin: 07/17/17 17:29 Dose: 400 mg Nystatin (Nystatin Oral Susp) 5 ml PO QID [facility] Last Admin: 07/17/17 17:29 Dose: 5 ml Pantoprazole Sodium (Protonix Ec Tab) 40 mg PO 0600,1600 [facility] Last Admin: 07/17/17 17:29 Dose: 40 mg Potassium Chloride (K-Dur 20 Meq Er Tab) 40 meq PO BRK [facility] Last Admin: 07/17/17 10:58 Dose: 40 meq Rifaximin (Xifaxan) 550 mg PO BID [facility] PRN Reason: Protocol Last Admin: 07/17/17 17:29 Dose: 550 mg Spironolactone (Aldactone) 25 mg PO DAILY [facility] Last Admin: 07/17/17 10:58 Dose: 25 mg Results - Vital Signs Recent Vital Signs: Last Vital Signs Temp 97.7 F 07/17/17 18:00 Pulse 94 H 07/17/17 18:00 Resp 18 07/17/17 18:00 BP 134/81 07/17/17 18:00 Pulse Ox 100 07/17/17 06:00 - Labs Result Diagrams: 07/17/17 02:40 07/17/17 02:40 Labs: Laboratory Results - last 24 hr 07/16/17 07/16/17 07/17/17 21:14 23:40 02:40 WBC RBC Hgb Hct MCV MCH MCHC RDW Plt Count MPV Gran % Lymph % (Auto) [place] % (Auto) Eos % (Auto) Baso % (Auto) Gran # Lymph # [place] # Eos # Baso # Sodium 135 Potassium 2.9 L* 3.2 L Chloride 108 H Carbon Dioxide 21 Anion Gap 9 L BUN 5 L Creatinine 0.7 Est GFR ( Amer) > 60 Est GFR (Non-Af Amer) > 60 POC Glucose (mg/dL) 153 H Random Glucose 161 H Calcium 7.8 L Phosphorus 1.9 L Magnesium 1.3 L Total Bilirubin 5.1 H AST 114 H ALT 55 Alkaline Phosphatase 157 H Total Protein 6.7 Albumin 2.4 L Globulin 4.3 Albumin/Globulin Ratio 0.6 L Lipase Fluid Source Fluid Appearance Fluid WBC Fluid RBC Fluid Tot Cell Count Fluid Neutrophils Fluid Lymphocytes Fld Monocyte/Macrophag Fluid Comment 07/17/17 07/17/17 07/17/17 02:40 08:41 11:19 WBC 4.7 RBC 2.82 L Hgb 9.5 L Hct 28.3 L MCV 100.4 MCH 33.7 MCHC 33.6 RDW 13.5 Plt Count 88 L MPV 9.5 Gran % 67.2 Lymph % (Auto) 12.4 L [place] % (Auto) 16.2 H Eos % (Auto) 3.6 Baso % (Auto) 0.6 Gran # 3.18 Lymph # 0.6 L [place]asper # 0.8 H Eos # 0.2 Baso # 0.03 Sodium Potassium Chloride Carbon Dioxide Anion Gap BUN Creatinine Est GFR ( Amer) Est GFR (Non-Af Amer) POC Glucose (mg/dL) 147 H 219 H Random Glucose Calcium Phosphorus Magnesium Total Bilirubin AST ALT Alkaline Phosphatase Total Protein Albumin Globulin Albumin/Globulin Ratio Lipase Fluid Source Fluid Appearance Fluid WBC Fluid RBC Fluid Tot Cell Count Fluid Neutrophils Fluid Lymphocytes Fld Monocyte/Macrophag Fluid Comment 07/17/17 07/17/17 07/17/17 13:00 14:25 17:24 WBC RBC Hgb Hct MCV MCH MCHC RDW Plt Count MPV Gran % Lymph % (Auto) [place] % (Auto) Eos % (Auto) Baso % (Auto) Gran # Lymph # [place] # Eos # Baso # Sodium Potassium Chloride Carbon Dioxide Anion Gap BUN Creatinine Est GFR ( Amer) Est GFR (Non-Af Amer) POC Glucose (mg/dL) 157 H Random Glucose Calcium Phosphorus 2.6 Magnesium 1.7 Total Bilirubin AST ALT Alkaline Phosphatase Total Protein Albumin Globulin Albumin/Globulin Ratio Lipase 475 H Fluid Source Peritoneal/ascites Fluid Appearance Clear Fluid WBC 105.0 Fluid RBC 485.1 H Fluid Tot Cell Count 100 H Fluid Neutrophils 21.0 H Fluid Lymphocytes 79.0 H Fld Monocyte/Macrophag TEST NOT PERFORMED Fluid Comment Yellow Attending/Attestation - Attestation I have personally seen and examined this patient.: Yes I have fully participated in the care of the patient.: Yes I have reviewed all pertinent clinical information: Yes Notes (Text): 07/17/17 20:00 p
--- NOTE | 2017-07-17 12:53 | CP.PCM.PN ---
<RyanBrigitten - Last Filed: 07/17/17 12:55> Subjective - Date & Time of Evaluation Date of Evaluation: 07/17/17 Time of Evaluation: 07:50 - Subjective Subjective: Patient was seen and examined at bedside. Per nursing the patient's phosphorous and magnesium were lower so they were repleted in the morning. No other acute events occurred overnight. The patient reports feeling better but still complaining of some abdominal discomfort. The patient reports having two non bloody bowel movements overnight. The patient is expected to undergo a paracentesis this afternoon.The patient denies any chest pain, shortness of breath, nausea, vomiting, changes in vision, or any other complains. Objective - Vital Signs/Intake and Output Vital Signs (last 24 hours): Temp Pulse Resp BP Pulse Ox 97.6 F 74 18 107/66 100 07/17/17 06:00 07/17/17 06:00 07/17/17 06:00 07/17/17 06:00 07/17/17 06:00 Intake and Output: 07/17/17 07/17/17 06:59 18:59 Intake Total 720 Output Total 450 Balance 270 - Medications Medications: Current Medications Insulin Human Regular (Humulin R Low) 0 units SC ACHS [facility] PRN Reason: Protocol Last Admin: 07/17/17 08:30 Dose: Not Given Lactulose (Enulose) 20 gm PO BID [facility] Last Admin: 07/17/17 10:59 Dose: 20 gm Magnesium Oxide (Mag-Ox) 400 mg PO BID [facility] Last Admin: 07/17/17 10:58 Dose: 400 mg Nystatin (Nystatin Oral Susp) 5 ml PO QID [facility] Last Admin: 07/17/17 10:59 Dose: 5 ml Pantoprazole Sodium (Protonix Ec Tab) 40 mg PO 0600,1600 [facility] Last Admin: 07/17/17 05:39 Dose: 40 mg Potassium Chloride (K-Dur 20 Meq Er Tab) 40 meq PO BRK [facility] Last Admin: 07/17/17 10:58 Dose: 40 meq Rifaximin (Xifaxan) 550 mg PO BID [facility] PRN Reason: Protocol Last Admin: 07/17/17 10:58 Dose: 550 mg Spironolactone (Aldactone) 25 mg PO DAILY [facility] Last Admin: 07/17/17 10:58 Dose: 25 mg - Labs Labs: 07/17/17 02:40 07/17/17 02:40 PT 16.1 Seconds (9.9-11.8) H 07/16/17 11:30 INR 1.49 (0.93-1.08) H 07/16/17 11:30 APTT 34.1 Seconds (23.7-30.8) H 07/16/17 11:30 - Head Exam Head Exam: ATRAUMATIC, NORMAL INSPECTION, NORMOCEPHALIC - Eye Exam Eye Exam: EOMI, Normal appearance, PERRL, Scleral icterus Pupil Exam: NORMAL ACCOMODATION, PERRL. absent: Miosis - ENT Exam ENT Exam: Mucous Membranes Moist, Normal Exam - Neck Exam Neck Exam: Normal Inspection - Respiratory Exam Respiratory Exam: Clear to Ausculation Bilateral, NORMAL BREATHING PATTERN. absent: Rales, Rhonchi - Cardiovascular Exam Cardiovascular Exam: REGULAR RHYTHM, RRR, +S1, +S2. absent: Rubs - GI/Abdominal Exam GI & Abdominal Exam: Firm, Normal Bowel Sounds Additional comments: Ascites appreciated. - Extremities Exam Extremities Exam: Full ROM. absent: Tenderness - Back Exam Back Exam: NORMAL INSPECTION. absent: paraspinal tenderness - Neurological Exam Neurological Exam: Alert, Awake, CN II-XII Intact - Psychiatric Exam Psychiatric exam: Normal Affect, Normal Mood - Skin Skin Exam: Dry Assessment and Plan - Assessment and Plan (Free Text) Assessment: This is a 56 year old male with past medical history of hyperammonia, liver cirrhosis, hepatic encephalopathy, avulsion, seizures, and diabetes who was admitted with ascites and hypokalemia. Plan: 1.Ascites -Dr. Conway was consulted for therapeutic and diagnostic tap. Tap scheduled for this afternoon -Started on Calorie restricted, Na restricted, fluid restriction diet. 1500ml Diet/Low Na diet/1800kcal -GI consulted and recs appreciated -continue home medications 2.Hypokalemia -2.6 at admission. Patient given 20mEq in the emergency department. -3.2 today. Patient given 40mEq and will closely monitor with serial cmp's. 3.Hyphophosphatemia -1.9 upon admission. Repleted. Will continue to monitor with serial cmp's. 4.Hypomagnesmia -1.3 on admission. Repleted. Will continue to monitor with serial cmp's 5. Oral Thrush -Likely 2/2 to his diabetes. -Nystatin swish. -Will continue to monitor. 4.Diabetes mellitus -held home medications -Start low insulin sliding scale. Follow up with Q6 blood glucose checks. Monitor closely. 4.GI ppx -Start protonix 5.DVT ppx -Will start Lovenox after paracentesis. <Ricardo SINGH,Bhumi - Last Filed: 07/20/17 17:01> Objective - Vital Signs/Intake and Output Vital Signs (last 24 hours): Temp Pulse Resp BP Pulse Ox 97.7 F 104 H 20 108/69 99 07/18/17 12:00 07/18/17 14:00 07/18/17 12:00 07/18/17 12:00 07/18/17 06:00 - Labs Labs: 07/18/17 06:47 07/18/17 06:47 PT 16.1 Seconds (9.9-11.8) H 07/16/17 11:30 INR 1.49 (0.93-1.08) H 07/16/17 11:30 APTT 34.1 Seconds (23.7-30.8) H 07/16/17 11:30 Attending/Attestation - Attestation I have personally seen and examined this patient.: Yes I have fully participated in the care of the patient.: Yes I have reviewed all pertinent clinical information, including history, physical exam and plan: Yes Notes (Text): 07/20/17 16:59 Patient was seen and examined with ophthalmic medical assistant. Agreed with resident assessment and plan. 56 year old male with past medical history of chronic liver disease, ascites, , DM currently not on any medication due to H/O hypoglycemia , hepatic encephalopathy, is admitted with admitted with ascites and hypokalemia. He is scheduled for Paracentesis today, Hypokalemia has improved.We will follow up ascitic fluid studies.Patient is afebrile, no sign of infection at this time. Management plan was discussed in detail with patient Education was provided.
[2017-07-17 13:20] LABS: BODY FLUID TYPE PERITONEAL/ASCITES
[2017-07-17 13:48] LABS: BF GROSS APPEARANCE CLEAR (CLEAR); BODY FLUID TOTAL COUNT 100 (0-0)
[2017-07-17 14:59] LABS: MAGNESIUM 1.7 mg/dL (1.7-2.2)
[2017-07-17 15:27] LABS: PHOSPHOROUS 2.6 mg/dL (2.5-4.5)
[2017-07-18] MEDS: Pantoprazole 40 mg EC Tab PO SCH (05:49)
[2017-07-18 06:19] VITALS: O2SAT 99
[2017-07-18 07:16] LABS: ALB/GLOB RATIO 0.5 (1.1-1.8); ALKALINE PHOSPHATASE 168 U/L (38-126); ALT/SGPT 65 U/L (7-56); AST/SGOT 135 U/L (17-59); BILIRUBIN,TOTAL 4.2 mg/dL (0.2-1.3); BLOOD UREA NITROGEN 5 mg/dL (7-21); CALCIUM 7.8 mg/dL (8.4-10.5); CARBON DIOXIDE 19 mmol/L (21-33); CHLORIDE 110 mmol/L (98-107); GFR AFRICAN-AMERICAN > 60; GLUCOSE,RANDOM 158 mg/dL (70-110); POTASSIUM 3.7 mmol/L (3.6-5.0); SODIUM 138 mmol/L (132-148); TOTAL PROTEIN 6.8 g/dL (5.8-8.3)
[2017-07-18 08:14] LABS: BASO # 0.03 K/mm3 (0.0-2.0); BASO % 0.7 % (0.0-3.0); EOS # 0.2 (0.0-0.7); EOS % 3.8 % (1.5-5.0); GRAN # 2.38 (1.4-6.5); GRAN % 57.3 % (50.0-68.0); HEMATOCRIT 30.7 % (42.0-52.0); LYMPH # 0.7 (1.2-3.4); LYMPH % 16.6 % (22.0-35.0); MEAN CELL VOLUME 101.7 fl (80.0-105.0); MEAN CORPUSCULAR HEMOGLOBIN 33.1 pg (25.0-35.0); MEAN CORPUSCULAR HGB CONC 32.6 g/dl (31.0-37.0); MEAN PLATELET VOLUME 10.2 fl (7.0-11.0); MONO # 0.9 (0.1-0.6); MONO % 21.6 % (1.0-6.0); PLATELET COUNT 102 10^3/uL (120.0-450.0); RED CELL DISTRIBUTION WIDTH 13.7 % (11.5-14.5); WHITE BLOOD COUNT 4.2 10^3/ul (4.5-11.0)
[2017-07-18] MEDS: Potassium Chloride 20 mEq ER Tab PO SCH (08:45)
[2017-07-18] MEDS: Insulin Reg-LOW-Coverage SC SCH ×2 (08:45→12:35)
[2017-07-18 10:25] LABS: BASOPHIL 1 % (0.0-1.0); EOSINOPHIL 2 % (0.0-3.0); NEUTROPHIL 63 % (50.0-70.0)
[2017-07-18] MEDS: Magnesium Oxide 400 mg Tab UD PO SCH (11:28)
[2017-07-18] MEDS: Nystatin 100,000 Units/ml Oral Susp 5 ml UD PO SCH (11:28)
[2017-07-18 12:46] VITALS: BP 108/69; RESP 20; TEMP 97.7
--- NOTE | 2017-07-18 14:44 | CP.PCM.DIS ---
<Claire Comer - Last Filed: 07/26/17 18:41> Provider - Provider Date of Admission: 07/16/17 13:20 Attending physician: Faby White MD Consults: MIROSLAVA Conway Time Spent in preparation of Discharge (in minutes): 50 Hospital Course - Lab Results Lab Results: Micro Results 07/17/17 13:28 Ascitic Fluid Gram Stain - Final 07/17/17 13:28 Ascitic Fluid Body Fluid Culture - Preliminary NO GROWTH AFTER 24 HOURS 07/17/17 13:28 Ascitic Fluid Fungal Culture - Preliminary Most Recent Lab Values WBC 4.2 10^3/ul (4.5-11.0) L 07/18/17 06:47 RBC 3.02 10^6/uL (3.5-6.1) L 07/18/17 06:47 Hgb 10.0 g/dL (14.0-18.0) L 07/18/17 06:47 Hct 30.7 % (42.0-52.0) L 07/18/17 06:47 MCV 101.7 fl (80.0-105.0) 07/18/17 06:47 MCH 33.1 pg (25.0-35.0) 07/18/17 06:47 MCHC 32.6 g/dl (31.0-37.0) 07/18/17 06:47 RDW 13.7 % (11.5-14.5) 07/18/17 06:47 Plt Count 102 10^3/uL (120.0-450.0) L 07/18/17 06:47 MPV 10.2 fl (7.0-11.0) 07/18/17 06:47 Gran % 57.3 % (50.0-68.0) 07/18/17 06:47 Lymph % (Auto) 16.6 % (22.0-35.0) L 07/18/17 06:47 Adams % (Auto) 21.6 % (1.0-6.0) H 07/18/17 06:47 Eos % (Auto) 3.8 % (1.5-5.0) 07/18/17 06:47 Baso % (Auto) 0.7 % (0.0-3.0) 07/18/17 06:47 Gran # 2.38 (1.4-6.5) 07/18/17 06:47 Lymph # 0.7 (1.2-3.4) L 07/18/17 06:47 Adams # 0.9 (0.1-0.6) H 07/18/17 06:47 Eos # 0.2 (0.0-0.7) 07/18/17 06:47 Baso # 0.03 K/mm3 (0.0-2.0) 07/18/17 06:47 Neutrophils % (Manual) 63 % (50.0-70.0) 07/18/17 06:47 Lymphocytes % (Manual) 18 % (22.0-35.0) L 07/18/17 06:47 Monocytes % (Manual) 16 % (1.0-6.0) H 07/18/17 06:47 Eosinophils % (Manual) 2 % (0.0-3.0) 07/18/17 06:47 Basophils % (Manual) 1 % (0.0-1.0) 07/18/17 06:47 PT 16.1 Seconds (9.9-11.8) H 07/16/17 11:30 INR 1.49 (0.93-1.08) H 07/16/17 11:30 APTT 34.1 Seconds (23.7-30.8) H 07/16/17 11:30 Sodium 138 mmol/L (132-148) 07/18/17 06:47 Potassium 3.7 mmol/L (3.6-5.0) 07/18/17 06:47 Chloride 110 mmol/L (98-107) H 07/18/17 06:47 Carbon Dioxide 19 mmol/L (21-33) L 07/18/17 06:47 Anion Gap 13 (10-20) 07/18/17 06:47 BUN 5 mg/dL (7-21) L 07/18/17 06:47 Creatinine 0.6 mg/dL (0.5-1.4) 07/18/17 06:47 Est GFR ( Amer) > 60 07/18/17 06:47 Est GFR (Non-Af Amer) > 60 07/18/17 06:47 POC Glucose (mg/dL) 256 mg/dL (65-110) H 07/18/17 11:18 Random Glucose 158 mg/dL (70-110) H 07/18/17 06:47 Calcium 7.8 mg/dL (8.4-10.5) L 07/18/17 06:47 Phosphorus 2.6 mg/dL (2.5-4.5) 07/17/17 14:25 Magnesium 1.7 mg/dL (1.7-2.2) 07/17/17 14:25 Total Bilirubin 4.2 mg/dL (0.2-1.3) H 07/18/17 06:47 AST 135 U/L (17-59) H 07/18/17 06:47 ALT 65 U/L (7-56) H 07/18/17 06:47 Alkaline Phosphatase 168 U/L (38-126) H 07/18/17 06:47 Total Protein 6.8 g/dL (5.8-8.3) 07/18/17 06:47 Albumin 2.4 g/dL (3.0-4.8) L 07/18/17 06:47 Globulin 4.4 gm/dL 07/18/17 06:47 Albumin/Globulin Ratio 0.5 (1.1-1.8) L 07/18/17 06:47 Lipase 475 U/L (23-300) H 07/17/17 14:25 Urine Color Yellow (YELLOW) 07/16/17 13:00 Urine Appearance Clear (CLEAR) 07/16/17 13:00 Urine pH 7.5 (4.7-8.0) 07/16/17 13:00 Ur Specific [place] 1.010 (1.005-1.035) 07/16/17 13:00 Urine Protein Negative mg/dL (<30 mg/dL) 07/16/17 13:00 Urine Glucose (UA) Negative mg/dL (NEGATIVE) 07/16/17 13:00 Urine Ketones Negative mg/dL (NEGATIVE) 07/16/17 13:00 Urine Blood Negative (NEGATIVE) 07/16/17 13:00 Urine Nitrate Negative (NEGATIVE) 07/16/17 13:00 Urine Bilirubin Negative (NEGATIVE) 07/16/17 13:00 Urine Urobilinogen 1.0 E.U./dL (<1 E.U./dL) H 07/16/17 13:00 Ur Leukocyte Esterase Negative Leopoldo/uL (NEGATIVE) 07/16/17 13:00 Fluid Source Peritoneal/ascites 07/17/17 13:00 Fluid Appearance Clear (CLEAR) 07/17/17 13:00 Fluid WBC 105.0 /uL (0.0-300.0) 07/17/17 13:00 Fluid RBC 485.1 /uL (0.0-0.0) H 07/17/17 13:00 Fluid Tot Cell Count 100 (0-0) H 07/17/17 13:00 Fluid Neutrophils 21.0 % (0-0) H 07/17/17 13:00 Fluid Lymphocytes 79.0 % (0-0) H 07/17/17 13:00 Fld Monocyte/Macrophag TEST NOT PERFORMED 07/17/17 13:00 Fluid Comment Yellow 07/17/17 13:00 Blood Type O POSITIVE 07/16/17 11:21 Blood Type Confirm O POSITIVE 07/16/17 18:03 Antibody Screen Negative 07/16/17 11:21 BBK History Checked No verified bt 07/16/17 11:21 - Hospital Course Hospital Course: This is a 56 yr. old male with a past medical history of hepatic encephalpathy, hypokalemia hyperammonemia, avulsion, cirrhosis of liver, diabetes mellitus, seizure who was admitted for complaints of shortness of breath due to swelling in his abdomen that has progressively gotten worse over the past 3 weeks. The patient denied any abdominal pain, nausea, vomiting, fevers, chills, blood in the stool, bleeding, headache, dizziness, or any other complaints. The patient was recently hospitalized and discharged from [facility] with the admitting diagnosis of hypoglycemia. The patient also had a seizure 2/ 2 to severe hypoglycemia during his hospital stay at [facility]. The patient denied being diagnosed with Hep B/C in his past. While in the Emergency Department the patient was given 20mEq of KCL. EKG showed NSR, no acute ST-T changes. CXR showed no active disease. Patient underwent paracentesis where 3900mL of clear straw colored fluid was drawn from the RLQ. SOB improved, hypokalemia was also corrected. Abd US showed patent portal vein with hepatopetal flow, recannulized umbilical vein, and small amount of ascites. Ascitic fluid cultures were negative. They were also negative for malignant cells and reactive for mesothelial cells and blood. Patient was advised to follow up with GI physician (Dr. Minor) within 1 week and to return to ER if symptoms return/ worsen. Patient agreeable to plan. Patient seen, examined, and discussed with Attending Claire Comer PGY-1 - Date & Time of H&P Date of H&P: 07/18/17 Time of H&P: 10:00 Discharge Exam - Head Exam Head Exam: ATRAUMATIC, NORMAL INSPECTION, NORMOCEPHALIC - Eye Exam Eye Exam: EOMI, Normal appearance - ENT Exam ENT Exam: Mucous Membranes Moist - Respiratory Exam Respiratory Exam: Clear to PA & Lateral - Cardiovascular Exam Cardiovascular Exam: RRR, +S1, +S2 - GI/Abdominal Exam GI & Abdominal Exam: Normal Bowel Sounds. absent: Tenderness Additional comments: mildly distended - Neurological Exam Neurological exam: Alert, Oriented x3 - Psychiatric Exam Psychiatric exam: Normal Affect, Normal Mood - Skin Skin Exam: Dry, Intact, Normal Color Discharge Plan - Follow Up Plan Condition: FAIR Disposition: HOME/ ROUTINE Instructions: Cirrhosis (DC), Anemia (DC) Additional Instructions: Follow up with Dr. Minor (GI doctor) within 1 week Please return to ER if symptoms worsen. RN Note: Dr. White authorizes discharge to home with follow-up with Dr. Minor, as noted above. Take time to read through the Discharge Instruction at our earliest convenience. If you experience any difficult breathing, unusual bleeding, temperature over 100F, sever pain, change in mental status or any worsening of your condition, contact the nearest Emergency Department or your Primary medical Doctor. Please make sure you have all your belongings prior to leaving the hospital. Referrals: Gamaliel Minor MD [Medical Doctor] - <Faby White - Last Filed: 07/27/17 09:01> Provider - Provider Date of Admission: 07/16/17 13:20 Attending physician: Faby White MD Hospital Course - Lab Results Lab Results: Micro Results 07/17/17 13:28 Ascitic Fluid Gram Stain - Final 07/17/17 13:28 Ascitic Fluid Anaerobic Culture - Final NO ANAEROBES ISOLATED. 07/17/17 13:28 Ascitic Fluid Body Fluid Culture - Final No growth. 07/17/17 13:28 Ascitic Fluid Fungal Culture - Preliminary Most Recent Lab Values WBC 4.2 10^3/ul (4.5-11.0) L 07/18/17 06:47 RBC 3.02 10^6/uL (3.5-6.1) L 07/18/17 06:47 Hgb 10.0 g/dL (14.0-18.0) L 07/18/17 06:47 Hct 30.7 % (42.0-52.0) L 07/18/17 06:47 MCV 101.7 fl (80.0-105.0) 07/18/17 06:47 MCH 33.1 pg (25.0-35.0) 07/18/17 06:47 MCHC 32.6 g/dl (31.0-37.0) 07/18/17 06:47 RDW 13.7 % (11.5-14.5) 07/18/17 06:47 Plt Count 102 10^3/uL (120.0-450.0) L 07/18/17 06:47 MPV 10.2 fl (7.0-11.0) 07/18/17 06:47 Gran % 57.3 % (50.0-68.0) 07/18/17 06:47 Lymph % (Auto) 16.6 % (22.0-35.0) L 07/18/17 06:47 Adams % (Auto) 21.6 % (1.0-6.0) H 07/18/17 06:47 Eos % (Auto) 3.8 % (1.5-5.0) 07/18/17 06:47 Baso % (Auto) 0.7 % (0.0-3.0) 07/18/17 06:47 Gran # 2.38 (1.4-6.5) 07/18/17 06:47 Lymph # 0.7 (1.2-3.4) L 07/18/17 06:47 Adams # 0.9 (0.1-0.6) H 07/18/17 06:47 Eos # 0.2 (0.0-0.7) 07/18/17 06:47 Baso # 0.03 K/mm3 (0.0-2.0) 07/18/17 06:47 Neutrophils % (Manual) 63 % (50.0-70.0) 07/18/17 06:47 Lymphocytes % (Manual) 18 % (22.0-35.0) L 07/18/17 06:47 Monocytes % (Manual) 16 % (1.0-6.0) H 07/18/17 06:47 Eosinophils % (Manual) 2 % (0.0-3.0) 07/18/17 06:47 Basophils % (Manual) 1 % (0.0-1.0) 07/18/17 06:47 PT 16.1 Seconds (9.9-11.8) H 07/16/17 11:30 INR 1.49 (0.93-1.08) H 07/16/17 11:30 APTT 34.1 Seconds (23.7-30.8) H 07/16/17 11:30 Sodium 138 mmol/L (132-148) 07/18/17 06:47 Potassium 3.7 mmol/L (3.6-5.0) 07/18/17 06:47 Chloride 110 mmol/L (98-107) H 07/18/17 06:47 Carbon Dioxide 19 mmol/L (21-33) L 07/18/17 06:47 Anion Gap 13 (10-20) 07/18/17 06:47 BUN 5 mg/dL (7-21) L 07/18/17 06:47 Creatinine 0.6 mg/dL (0.5-1.4) 07/18/17 06:47 Est GFR ( Amer) > 60 07/18/17 06:47 Est GFR (Non-Af Amer) > 60 07/18/17 06:47 POC Glucose (mg/dL) 256 mg/dL (65-110) H 07/18/17 11:18 Random Glucose 158 mg/dL (70-110) H 07/18/17 06:47 Calcium 7.8 mg/dL (8.4-10.5) L 07/18/17 06:47 Phosphorus 2.6 mg/dL (2.5-4.5) 07/17/17 14:25 Magnesium 1.7 mg/dL (1.7-2.2) 07/17/17 14:25 Total Bilirubin 4.2 mg/dL (0.2-1.3) H 07/18/17 06:47 AST 135 U/L (17-59) H 07/18/17 06:47 ALT 65 U/L (7-56) H 07/18/17 06:47 Alkaline Phosphatase 168 U/L (38-126) H 07/18/17 06:47 Total Protein 6.8 g/dL (5.8-8.3) 07/18/17 06:47 Albumin 2.4 g/dL (3.0-4.8) L 07/18/17 06:47 Globulin 4.4 gm/dL 07/18/17 06:47 Albumin/Globulin Ratio 0.5 (1.1-1.8) L 07/18/17 06:47 Lipase 475 U/L (23-300) H 07/17/17 14:25 Urine Color Yellow (YELLOW) 07/16/17 13:00 Urine Appearance Clear (CLEAR) 07/16/17 13:00 Urine pH 7.5 (4.7-8.0) 07/16/17 13:00 Ur Specific [place] 1.010 (1.005-1.035) 07/16/17 13:00 Urine Protein Negative mg/dL (<30 mg/dL) 07/16/17 13:00 Urine Glucose (UA) Negative mg/dL (NEGATIVE) 07/16/17 13:00 Urine Ketones Negative mg/dL (NEGATIVE) 07/16/17 13:00 Urine Blood Negative (NEGATIVE) 07/16/17 13:00 Urine Nitrate Negative (NEGATIVE) 07/16/17 13:00 Urine Bilirubin Negative (NEGATIVE) 07/16/17 13:00 Urine Urobilinogen 1.0 E.U./dL (<1 E.U./dL) H 07/16/17 13:00 Ur Leukocyte Esterase Negative Leopoldo/uL (NEGATIVE) 07/16/17 13:00 Fluid Source Peritoneal/ascites 07/17/17 13:00 Fluid Appearance Clear (CLEAR) 07/17/17 13:00 Fluid WBC 105.0 /uL (0.0-300.0) 07/17/17 13:00 Fluid RBC 485.1 /uL (0.0-0.0) H 07/17/17 13:00 Fluid Tot Cell Count 100 (0-0) H 07/17/17 13:00 Fluid Neutrophils 21.0 % (0-0) H 07/17/17 13:00 Fluid Lymphocytes 79.0 % (0-0) H 07/17/17 13:00 Fld Monocyte/Macrophag TEST NOT PERFORMED 07/17/17 13:00 Fluid Albumin 0.3 g/dL 07/17/17 13:28 Fluid Comment Yellow 07/17/17 13:00 Peritoneal Tot Protein <3.0 g/dL 07/17/17 13:28 Peritoneal LDH 47 U/L (<63) 07/17/17 13:28 Peritoneal Glucose 209 mg/dL 07/17/17 13:28 Blood Type O POSITIVE 07/16/17 11:21 Blood Type Confirm O POSITIVE 07/16/17 18:03 Antibody Screen Negative 07/16/17 11:21 BBK History Checked No verified bt 07/16/17 11:21 Attending/Attestation - Attestation I have personally seen and examined this patient.: Yes I have fully participated in the care of the patient.: Yes I have reviewed all pertinent clinical information, including history, physical exam and plan: Yes Notes (Text): 07/27/17 08:58 56 year old male with past medical history of diabetes and cirrhosis who presented with abdominal swelling and distention with shortness of breath. He was found to have ascites and underwent paracentesis. His symptoms improved the following day. Patient is discharged home to follow up with his pmd and database designer. Faby White MD Hospitalist.
[2017-07-18 15:19] VITALS: PULSE 104
--- NOTE | 2017-07-19 18:04 | US ---
PROCEDURE: Portal vein duplex ultrasound. CLINICAL HISTORY: Cirrhosis. Deteriorating liver function. Evaluate for portal vein thrombosis. PHYSICIAN(S): Nikko Conway M.D. FINDINGS: The hepatic parenchyma is heterogeneous with a nodular margin, consistent with cirrhosis. The extrahepatic portal vein is patent with hepatopetal flow. The hepatic artery is patent. There is a large recannulized umbilical vein present. The spleen is borderline enlarged. There is a small amount of ascites in the upper abdomen. IMPRESSION: 1. Patent portal vein with hepatopetal flow. 2. Recannulized umbilical vein. 3. Small amount of ascites.
--- NOTE | 2017-07-20 09:06 | US ---
PROCEDURE: Ultrasound guided paracentesis. HISTORY: Alcoholic cirrhosis. Previously treated hepatoma. New onset ascites. Needs paracentesis. PHYSICIAN(S): Nikko Conway MD. TECHNIQUE: The relative risks and indications for the procedure were explained to the patient and informed written consent obtained. Sonography of the abdomen was performed in a supine position. This revealed a moderate amount of non-loculated ascites, greatest in the right lower quadrant. A puncture site was selected and the area was prepped and draped in the usual sterile fashion. 1% Xylocaine was used to anesthetize the skin and soft tissues. A 7 Sw[place] paracentesis catheter was trocared into the right lower quadrantand 3900 cc of clear yellow fluid aspirated. The appropriate labs were sent. IMPRESSION: Ultrasound-guided paracentesis in the right lower quadrant. 3900 cc of fluid were aspirated. Labs were sent
[2017-07-21 17:48] LABS: GLUCOSE PERITONEAL FLUID 209 mg/dL; LDH PERITONEAL FLUID 47 U/L (<63); TOTAL PROTEIN PERITONEAL FLUID <3.0 g/dL
== END 2017-07-18 16:40 | disposition home or self-care (01) | DRG 433 ==
LOC: ED 10:21 → ERH 13:20 → 5RSO 15:07 → 2RNO 22:22
PROVIDERS: ADMIT Hospitalist; ATTEND Internal Medicine
PROC: BW40ZZZ Ultrasonography of Abdomen (ICD-10-PCS; 2017-07-17)
PROC: 0W9G3ZZ Drainage of Peritoneal Cavity, Percutaneous Approach (ICD-10-PCS; principal; 2017-07-17 12:30)
DX: K74.60 Unspecified cirrhosis of liver (principal); R18.8 Other ascites; R64 Cachexia; B37.0 Candidal stomatitis; E72.20 Disorder of urea cycle metabolism, unspecified; K76.6 Portal hypertension; Z68.1 Body mass index [BMI] 19.9 or less, adult; E11.649 Type 2 diabetes mellitus with hypoglycemia without coma; E87.6 Hypokalemia; G40.909 Epilepsy, unspecified, not intractable, without status epilepticus; Z79.899 Other long term (current) drug therapy; Z83.3 Family history of diabetes mellitus; Z87.891 Personal history of nicotine dependence; Z80.0 Family history of malignant neoplasm of digestive organs; Z87.898 Personal history of other specified conditions; R19.7 Diarrhea, unspecified